=== PATIENT | male | born 1980 | race Caucasian/White ===

== ENCOUNTER 2016-06-24 15:51 | Outpatient (CLI) | payer BC ==
[2016-06-24 22:43] LABS: #Basophils 0.1 thou/uL (0.0-0.2); #Eosinphils 0.2 thou/uL (0.0-0.7); #Lymphocytes 3.6 thou/uL (1.20-3.40); #Monocytes 1.2 thou/uL (0.11-0.59); #Neutrophils 3.4 thou/uL (1.40-6.50); %Basophils 1.6 % (0.0-1.0); %Monocytes 14.5 % (0.0-10.0); Hematocrit 54.2 % (42.0-52.0); Mean Platelet Volume 5.9 fL (7.4-10.4); Red Blood Cell (RBC) Count 5.53 mill/uL (4.70-6.10); White Blood Cell (WBC) Count 8.5 thou/uL (4.8-10.8)
== END 2016-06-24 15:52 | disposition home or self-care (01) ==
LOC: BURLAB 15:51
PROVIDERS: ATTEND Otolaryngology Plastic Surgery within the Head & Neck
DX: E04.1 Nontoxic single thyroid nodule (principal)
CPT/HCPCS: 36415; 85025; 86038

== ENCOUNTER 2016-07-10 09:26 | Outpatient (CLI) | payer BC ==
--- NOTE | 2016-07-10 12:27 | ULT ---
ABDOMINAL ULTRASOUND: Date: 07/10/16 Ultrasonography of the abdomen was performed for evaluation of elevated liver enzymes and right uppe r quadrant pain. Ultrasonographic images and worksheets were provided and reviewed. FINDINGS: The liver is large, measuring 17.7 cm in oblique sagittal length. It is slightly echo dense, so ther e may be some fatty infiltration. No dilated ducts or masses seen. Portal venous flow was appropriat jarocho towards the liver. The spleen was normal in size. The pancreas and aorta were unremarkable. Gall bladder contained no signs of stones or wall thickening. The common bile duct was a normal 5-6 mm in caliber. The right kidney was 11.8 cm in length and appeared normal. The left kidney was 10.7 cm long and con tained a dip in its cortex. This could be an area of scarring from a prior infection. The inferior v nadine cava was unremarkable. IMPRESSION: Mild hepatomegaly with possible diffuse fatty infiltration. POS: [facility]
== END 2016-07-10 09:27 | disposition home or self-care (01) ==
LOC: BURULT 09:26
PROVIDERS: ATTEND Family Medicine
DX: R74.8 Abnormal levels of other serum enzymes (principal); R10.11 Right upper quadrant pain
CPT/HCPCS: 76700

== ENCOUNTER 2018-12-29 13:04 | Outpatient (CLI) | payer BC ==
--- NOTE | 2018-12-29 18:14 | ULT ---
ULTRASOUND OF THE RIGHT AXILLA SOFT TISSUES 12/29/18 Ultrasonography through the area of the right axilla was performed. No specific mass, cyst or other f ocal pathology was found. No obviously enlarged nodes were apparent. IMPRESSION: No significant findings. POS: HOME
== END 2018-12-29 13:05 | disposition home or self-care (01) ==
LOC: BURULT 13:04
PROVIDERS: ATTEND Physician Assistant
DX: M79.621 Pain in right upper arm (principal); Z85.71 Personal history of Hodgkin lymphoma

== ENCOUNTER 2022-09-26 21:31 | Emergency (ER) | payer BC ==
[2022-09-26] MEDS ORDERED: Acetaminophen 325 MG TAB ONE (22:07)
[2022-09-26] MEDS ORDERED: traMADol HCl 50 MG TAB ONE (22:07)
[2022-09-26] MEDS ORDERED: Labetalol HCl 100 MG/20 ML VIAL ONE (22:07)
[2022-09-26 22:22] LABS: ALT (SGPT) 58 U/L (8-55); AST (SGOT) 41 U/L (5-34); Albumin 4.9 g/dL (3.5-5.0); Alkaline Phosphatase 97 U/L (40-110); Anion Gap 16 mmol/L (10-20); BUN (Urea Nitrogen) 13 mg/dL (8.9-20.6); Bilirubin, Total 0.7 mg/dL (0.2-1.2); Calc. Creatinine Clearance 0 mL/min (70-130); Calcium 9.8 mg/dL (7.8-10.44); Carbon Dioxide 26 mmol/L (22-29); Chloride 101 mmol/L (98-107); Estimated GFR 88; Globulin 3.6 g/dL (2.4-3.5); Glucose 118 mg/dL (70-105); Magnesium 1.8 mg/dL (1.6-2.6); Potassium 3.9 mmol/L (3.5-5.1); Protein, Total 8.5 g/dL (6.0-8.3); Sodium 139 mmol/L (136-145)
[2022-09-26 22:33] LABS: #Basophils 0.1 thou/uL (0.0-0.2); #Eosinphils 0.5 thou/uL (0.0-0.7); #Lymphocytes 1.4 thou/uL (1.20-3.40); #Monocytes 0.9 thou/uL (0.11-0.59); #Neutrophils 8.2 thou/uL (1.40-6.50); %Basophils 0.9 % (0.0-1.0); %Eosinophils 4.5 % (0.0-10.0); %Lymphocytes 12.5 % (21.0-51.0); %Monocytes 7.9 % (0.0-10.0); %Neutrophils 74.2 % (42.0-75.0); Hemoglobin 18.1 g/dL (14.0-18.0); Mean Corpuscular HGB CONC 33.9 g/dL (32.0-36.0); Mean Corpuscular Hemoglobin 32.5 pg (27.0-31.0); Mean Platelet Volume 7.5 fL (7.4-10.4); Platelet Count 277 10x3/uL (130-400); RBC Distribution Width 11.7 % (11.5-14.5); Red Blood Cell (RBC) Count 5.56 mill/uL (4.70-6.10)
[2022-09-26] MEDS ORDERED: Ondansetron PF 4 MG/2 ML Vial ONE (22:38)
[2022-09-26] MEDS ORDERED: Famotidine 20 MG TAB ONE (22:46)
[2022-09-26] MEDS ORDERED: Mag-Al Plus 1200 MG/1200 MG/120 MG/30 ML UDCUP ONE (22:46)
[2022-09-27 00:21] LABS: Troponin I Less than 0.010 ng/mL (< 0.028)
[2022-09-27 01:00] LABS: Bilirubin Negative (Negative); Blood, Urine Negative (Negative); Clarity Clear (Clear); Glucose, Urine (Dipstick) Negative (Negative); Ketone, Urine Negative (Negative); Leukocyte Negative (Negative); Nitrite Negative (Negative); Protein, Urine (Dipstick) Trace mg/dL (Neg-Trace); Urobilinogen 0.2 mg/dL (Less than 2)
[2022-09-27 01:12] LABS: Amphetamine Not Detected (NotDetected); Barbiturates Screen Not Detected (NotDetected); Benzodiazepine Screen Not Detected (NotDetected); Cocaine Metabolite Screen Not Detected (NotDetected); Methadone Not Detected (NotDetected); Methamphetamine Not Detected (NotDetected); Opiate Screen Not Detected (NotDetected); Oxycodone Screen Not Detected (NotDetected); Phencyclidine (PCP) Not Detected (NotDetected); THC/Cannabinoid Screen Not Detected (NotDetected); Tricyclic Screen Not Detected (NotDetected)
== END 2022-09-27 00:38 | disposition home or self-care (01) ==
LOC: BURERS 21:31
DX: I10 Essential (primary) hypertension (principal); R00.0 Tachycardia, unspecified; E03.9 Hypothyroidism, unspecified; Z79.899 Other long term (current) drug therapy
CPT/HCPCS: 36415; 70450; 71045; 80053; 80306; 81003; 83605; 83735; 83880; 84443; 84484; 85025; 85379; 93005; 96374; 96375; J2405